=== PATIENT | male | born 1985 | race Hispanic/Latino ===

== ENCOUNTER 2023-04-19 07:25 | Day surgery (SDC) | payer BC ==
[2023-04-16 16:02] LABS: BASOPHILS # (AUTO) 0.05 K/uL (0.00-0.20); BASOPHILS % (AUTO) 0.6 % (0.0-5.0); EOSINOPHILS # (AUTO) 0.22 K/uL (0.00-0.70); EOSINOPHILS % (AUTO) 2.8 % (0.0-8.0); HEMATOCRIT 36.6 % (42-54); IMMATURE GRANULOCYTE ABSOLUTE 0.01 K/uL (0-1); LYMPHOCYTES # (AUTO) 1.5 K/uL (1.0-4.8); LYMPHOCYTES % (AUTO) 18.8 % (21.0-51.0); MEAN CORPUSCULAR HEMOGLOBIN 29.8 pg (27.0-33.0); MEAN CORPUSCULAR HGB CONC 33.6 g/dL (32.0-36.0); MEAN CORPUSCULAR VOLUME 88.6 fL (79-99); MONOCYTES # (AUTO) 0.6 K/uL (0.1-1.0); MONOCYTES % (AUTO) 7.1 % (3.0-13.0); NEUTROPHILS # (AUTO) 5.6 K/uL (1.8-7.7); NEUTROPHILS % (AUTO) 70.6 % (40.0-77.0); PLATELET COUNT (AUTO) 307 K/uL (130-400); RED BLOOD CELL COUNT(AUTO) 4.13 MIL/uL (4.50-6.20); RED CELL DISTRIBUTION WIDTH 14.6 % (11.0-15.5); WHITE BLOOD COUNT (AUTO) 7.9 K/uL (4.8-10.8)
[2023-04-16 16:10] LABS: CREATININE 0.9 mg/dL (0.5-1.5); POTASSIUM 4.2 mmol/L (3.5-5.1)
[2023-04-16 16:16] VITALS: BP 142/64; PULSE 73; RESP 18
[~2023-04-19] VITALS: Ht 165.1 cm; Wt 76.3 kg
[2023-04-19] VITALS (17 sets, daily range): BP systolic 109–138; BP diastolic 63–87; PULSE 74–95; RESP 14–19
[~2023-04-19 07:25] MED LIST: OMEP40CA21 PO
[2023-04-19] MEDS: LACTATED RINGERS 1000ML 1,000 ML IV ONE (08:58)
[2023-04-19] MEDS: CEFAZOLIN SODIUM 2 GM VIAL ONE (08:59)
[2023-04-19] MEDS ORDERED: SUGAMMADEX SODIUM 200 MG/2 ML VIAL IV ONE (13:39)
[2023-04-19] MEDS ORDERED: FAMOTIDINE 20MG VIAL IV ONE (13:39)
[2023-04-19] MEDS ORDERED: INDOCYANINE GREEN 25 MG VIAL IJ ONE (13:57)
[2023-04-19] MEDS ORDERED: MIDAZOLAM HCL 1 MG/ML 2ML VIAL ONE (14:08)
[2023-04-19] MEDS ORDERED: PROPOFOL 10 MG/ML 20ML VIAL IV ONE (14:08)
[2023-04-19] MEDS ORDERED: LIDOCAINE HCL MPF 1% 5ML VIAL ONE (14:08)
[2023-04-19] MEDS ORDERED: ROCURONIUM BROMIDE 10MG/1ML 5ML VL ONE ×2 (14:08→15:28)
[2023-04-19] MEDS ORDERED: SUCCINYLCHOLINE CHLORIDE 20 MG/ML 10 ML VIAL ONE (14:08)
[2023-04-19] MEDS ORDERED: FENTANYL CITRATE PF 50 MCG/1 ML 5ML AMP IV ONE (14:09)
[2023-04-19] MEDS ORDERED: ONDANSETRON 4MG INJ ONE ×2 (14:21→17:05)
[2023-04-19] MEDS ORDERED: DEXAMETHASONE SOD PHOSPHATE 10MG/ML 1ML VIAL ONE (14:21)
[2023-04-19] MEDS ORDERED: PHENYLEPHRINE HCL 10 MG/ML 1ML VIAL IV ONE (14:23)
[2023-04-19] MEDS: BUPIVACAINE/PF 0.5% 30ML VIAL ONE (14:36)
== END 2023-04-19 19:20 | disposition home or self-care (01) ==
LOC: DAHIP 07:25 → DAH 07:25 → UNDOADMIN 07:25 → DAH 19:20
PROVIDERS: ATTEND Surgery
DX: C16.9 Malignant neoplasm of stomach, unspecified (principal); C78.6 Secondary malignant neoplasm of retroperitoneum and peritoneum; E43 Unspecified severe protein-calorie malnutrition; R10.13 Epigastric pain; R13.10 Dysphagia, unspecified; Z79.899 Other long term (current) drug therapy; Z79.01 Long term (current) use of anticoagulants; Z72.89 Other problems related to lifestyle; Z98.890 Other specified postprocedural states; Z68.26 Body mass index [BMI] 26.0-26.9, adult
CPT/HCPCS: 49321; 49329; S2900; 36415; 43235; 80048; 85025; 86850; 86900; 86901; 88112; 88305; 88341; 88342; 93005; J0330; J1100; J2250; J2371; J2405; J2704; J3010; J3490; J7120; A4215; A4221; A4222; A4223; A4600; A4649; A4663; A4930; A6260; G0168; J0665; J0690